=== PATIENT | female | born 2000 | race Caucasian/White ===

== ENCOUNTER 2018-04-30 16:13 | Inpatient (IN) | payer OTHER ==
--- NOTE | 2018-04-30 16:54 | EDPHY ---
H & P Stated Complaint: appendectomy 4 days ago, since having ongoing bilat lower abd pain/villarreal Time Seen by Provider: 04/30/18 16:53 - Medical/Surgical History Hx Asthma: Yes Hx Chronic Respiratory Disease: No Hx Diabetes: No Hx Cardiac Disease: No Hx Renal Disease: No Hx Cirrhosis: No Hx Alcoholism: No Hx HIV/AIDS: No Hx Splenectomy or Spleen Trauma: No Other PMH: asthma, appendectomy, deviated septum surg - Social History Smoking Status: Never smoked Constitutional: Initial Vital Signs Temperature (C) 36.6 C 04/30/18 16:16 Heart Rate 72 04/30/18 16:16 Respiratory Rate 16 04/30/18 16:16 Blood Pressure 131/84 H 04/30/18 16:16 O2 Sat (%) 88 L 04/30/18 16:16 O2 Delivery Mode Nasal Cannula O2 (L/minute) 2 Allergies/Adverse Reactions: ondansetron [From Zofran] Allergy (Verified 04/30/18 16:21) Home Medications: Medication Instructions Recorded Albuterol 04/30/18 Ibuprofen 04/30/18 Percocet 5-325 mg Tablet 04/30/18 Phenergan 50mg tab 04/30/18 Medical Decision Making - Diagnostics Imaging Results: Imaging Impressions Abdomen CT 04/30/18 17:06 Impression: 1. Irregular peripherally enhancing collection in the appendectomy bed, suspicious for phlegmon/abscess, with a deep posterior pelvic fluid collection also suspicious for abscess/phlegmon. 2. Moderate bilateral pleural effusions, with bibasilar consolidation and scattered left upper lobe opacities, most likely representing atelectasis although pneumonia could have a similar appearance. 3. No visible pulmonary embolus. 4. Additional findings, as above. Findings discussed with Jamie Varma M.D., on April 30, 2018 at 1907. E:amm Chest/Thorax CTA 04/30/18 17:30 Impression: 1. Irregular peripherally enhancing collection in the appendectomy bed, suspicious for phlegmon/abscess, with a deep posterior pelvic fluid collection also suspicious for abscess/phlegmon. 2. Moderate bilateral pleural effusions, with bibasilar consolidation and scattered left upper lobe opacities, most likely representing atelectasis although pneumonia could have a similar appearance. 3. No visible pulmonary embolus. 4. Additional findings, as above. Findings discussed with Jamie Varma M.D., on April 30, 2018 at 1907. E:amm Imaging: Discussed imaging studies w/ geospatial engineer Radiologist, I viewed and interpreted images myself ED Course/Re-evaluation: CHIEF COMPLAINT: Abdominal pain, malaise following appendectomy HISTORY OF PRESENT ILLNESS: The patient is a 18 y/o female arriving with her family complaining of abdominal pain and malaise following an appendectomy on , 4 days ago. Per mother, she had an uncomplicated appendicitis without perforation or rupture. There was some confusion about whether she should be on an antibiotic or not and she ultimately only took one antibiotic dose. She has been feeling "very poorly" since the surgery. She complains of pain in her lower abdomen on both sides that is aggravated significantly with movement and breathing and has prohibited her from walking and sitting up. She also complains of a headache, myalgias, and nausea. She had her first bowel movement since the surgery today. She generally feels "very sick," though no measured fever. She has been on Percocet and Advil nonstop since surgery. REVIEW OF SYSTEMS: A comprehensive 10 system review of systems is otherwise negative aside from elements mentioned in the history of present illness and medical decision making. PHYSICAL EXAM: HR, BP, O2 Sat 88% on room air, RR. Temp noted General Appearance: Alert, well hydrated, appropriate, and non-toxic appearing. Head: Atraumatic without scalp tenderness or obvious injury Eyes: Pupils equal, round, reactive to light and accommodation, EOMI, no trauma , no injection. Nose: Atraumatic, no rhinorrhea, clear. Throat: Mucus membranes moist. Neck: Supple, nontender, no lymphadenopathy. Respiratory: No retractions, no distress, no wheezes, and no accessory muscle use. Lungs are clear to auscultation bilaterally. Cardiovascular: Regular rate and rhythm, no murmurs, rubs, or gallops. Good capillary refill all extremities. Gastrointestinal: Abdomen is soft, lower abdominal tenderness, non-distended, no masses, no rebound, no guarding, no peritoneal signs. Wound clean, dry, and intact. Musculoskeletal: Normal active ROM of all extremities, atraumatic. Neurological: Alert, appropriate, and interactive. The patient has non-focal cranial nerves, motor, sensory, and cerebellar exam. Skin: No rashes, good turgor, no nodules on palpation. Past medical history: Asthma Past surgical history: Laparoscopic appendectomy 04/26/18 in [place], deviated septum surgery. Family history: Noncontributory Social history: Lives in [place]. Family at bedside. DIAGNOSTICS/PROCEDURES/CRITICAL CARE TIME: Abdominal CT: pelvic abscesses near suture line of appendectomy, atelectasis. DIFFERENTIAL DIAGNOSIS: The differential diagnosis for the patient's abdominal pain included but was not limited to post-surgical complication, ovarian cyst, pelvic inflammatory disease, ovarian torsion, urinary tract infection, ectopic , cholecystitis, and appendicitis. MEDICAL DECISION MAKING: This is a normally healthy 18 y/o female 4 days out from an appendectomy who presents with abdominal pain and malaise since the surgery. She has lower abdominal tenderness on exam that is significantly worse with movement and palpation. Concern for post-surgical complication. Plan for IV, labs, abdominal CT, and symptom management. 1L IV NS, 12.5mg IV Phenergan, 30mg IV Toradol, and 0.5mg IV Dilaudid ordered. CT shows two pelvic abscesses. WBC is elevated. Reassessed patient and discussed findings. Consulted with Dr. Lee, surgeon. He will evaluate patient in the ED. Dr. Lee will admit patient. - Data Points Laboratory Results: Laboratory Results 04/30/18 17:10 04/30/18 17:10 04/30/18 04/30/18 04/30/18 17:15 17:10 17:10 WBC RBC Hgb POC Hgb 11.6 gm/dL L gm/dL (12.6-16.3) Hct POC Hct 34 % L % (38-47) MCV MCH MCHC RDW Plt Count MPV Neut % (Auto) Lymph % (Auto) [place] % (Auto) Eos % (Auto) Baso % (Auto) Nucleat RBC Rel Count Absolute Neuts (auto) Absolute Lymphs (auto) Absolute Monos (auto) Absolute Eos (auto) Absolute Basos (auto) Absolute Nucleated RBC Immature Gran % Immature Gran # POC Sodium 140 mEq/L mEq/L (135-145) Sodium 137 mEq/L mEq/L (135-145) POC Potassium 3.6 mEq/L mEq/L (3.3-5.0) Potassium 3.8 mEq/L mEq/L (3.3-5.0) POC Chloride 99 mEq/L mEq/L (97-110) Chloride 101 mEq/L mEq/L (97-110) Carbon Dioxide 27 mEq/l mEq/l (22-31) Anion Gap 9 mEq/L mEq/L (6-14) POC BUN 5 mg/dL L mg/dL (7-23) BUN 8 mg/dL mg/dL (7-23) Creatinine 0.6 mg/dL mg/dL (0.6-1.0) POC Creatinine 0.6 mg/dL mg/dL (0.6-1.0) Estimated GFR > 60 Glucose 86 mg/dL mg/dL (70-100) POC Glucose 86 mg/dL mg/dL (70-100) Calcium 8.8 mg/dL mg/dL (8.5-10.4) Beta HCG, Qual NEGATIVE 04/30/18 17:10 WBC 11.74 10^3/uL H 10^3/uL (3.80-9.50) RBC 3.63 10^6/uL L 10^6/uL (4.18-5.33) Hgb 11.5 g/dL L g/dL (12.6-16.3) POC Hgb Hct 33.6 % L % (38.0-47.0) POC Hct MCV 92.6 fL fL (81.5-99.8) MCH 31.7 pg pg (27.9-34.1) MCHC 34.2 g/dL g/dL (32.4-36.7) RDW 12.6 % % (11.5-15.2) Plt Count 263 10^3/uL 10^3/uL (150-400) MPV 9.1 fL fL (8.7-11.7) Neut % (Auto) 76.5 % H % (39.3-74.2) Lymph % (Auto) 12.0 % L % (15.0-45.0) [place] % (Auto) 7.4 % % (4.5-13.0) Eos % (Auto) 1.8 % % (0.6-7.6) Baso % (Auto) 0.5 % % (0.3-1.7) Nucleat RBC Rel Count 0.3 % H % (0.0-0.2) Absolute Neuts (auto) 8.98 10^3/uL H 10^3/uL (1.70-6.50) Absolute Lymphs (auto) 1.41 10^3/uL 10^3/uL (1.00-3.00) Absolute Monos (auto) 0.87 10^3/uL H 10^3/uL (0.30-0.80) Absolute Eos (auto) 0.21 10^3/uL 10^3/uL (0.03-0.40) Absolute Basos (auto) 0.06 10^3/uL 10^3/uL (0.02-0.10) Absolute Nucleated RBC 0.04 10^3/uL H 10^3/uL (0-0.01) Immature Gran % 1.8 % H % (0.0-1.1) Immature Gran # 0.21 10^3/uL H 10^3/uL (0.00-0.10) POC Sodium Sodium POC Potassium Potassium POC Chloride Chloride Carbon Dioxide Anion Gap POC BUN BUN Creatinine POC Creatinine Estimated GFR Glucose POC Glucose Calcium Beta HCG, Qual Medications Given: Hydromorphone HCl (Dilaudid) 0.5 mg IVP Q4HRS ONE Stop: 04/30/18 19:52 Last Admin: 04/30/18 19:52 Dose: 0.5 mg Meropenem 1 gm/ Sodium (Chloride) 120 mls @ 120 mls/hr IV EDNOW ONE PRN Reason: Protocol Stop: 04/30/18 20:09 Last Admin: 04/30/18 19:44 Dose: 120 mls Discontinued Medications Hydromorphone HCl (Dilaudid) 0.5 mg IVP EDNOW ONE Stop: 04/30/18 17:07 Last Admin: 04/30/18 17:21 Dose: 0.5 mg Sodium Chloride (Ns) 1,000 mls @ 0 mls/hr IV EDNOW ONE; Wide Open PRN Reason: Protocol Stop: 04/30/18 17:07 Last Admin: 04/30/18 17:16 Dose: 1,000 mls Ketorolac Tromethamine (Toradol) 30 mg IVP EDNOW ONE Stop: 04/30/18 17:07 Last Admin: 04/30/18 17:17 Dose: 30 mg Promethazine HCl (Phenergan) 12.5 mg IVP EDNOW ONE Stop: 04/30/18 17:08 Last Admin: 04/30/18 17:20 Dose: 12.5 mg Point of Care Test Results: Chemistry 04/30/18 17:15 POC Sodium 140 mEq/L mEq/L (135-145) POC Potassium 3.6 mEq/L mEq/L (3.3-5.0) POC Chloride 99 mEq/L mEq/L (97-110) POC BUN 5 mg/dL L mg/dL (7-23) POC Creatinine 0.6 mg/dL mg/dL (0.6-1.0) POC Glucose 86 mg/dL mg/dL (70-100) ISTAT H&H 04/30/18 17:15 POC Hgb 11.6 gm/dL L gm/dL (12.6-16.3) POC Hct 34 % L % (38-47) Departure - Departure Disposition: [facility] Inpatient Acute Clinical Impression: Intra-abdominal abscess post-procedure Condition: Fair Report Scribed for: Jamie Varma Report Scribed by: Toña Coburn Date of Report: 04/30/18 Time of Report: 17:37
[2018-04-30] MEDS ORDERED: NS 1,000 ML IV ONE (17:06)
[2018-04-30] MEDS ORDERED: HYDROmorphONE/DILAUDID 2 MG/ML INJ IVP ONE (17:06)
[2018-04-30] MEDS ORDERED: KETOROLAC 30 MG/1 ML SDV IVP ONE (17:06)
[2018-04-30] MEDS ORDERED: PROMETHAZINE HCL 25 MG/ML INJ IVP ONE (17:07)
[2018-04-30 17:21] LABS: PLATELET COUNT 263 10^3/uL (150-400)
[2018-04-30] MEDS ORDERED: IOPAMIDOL (ISOVUE 370) 100 ML BTL IV ONE (18:01)
[2018-04-30] MEDS ORDERED: MEROPENEM 1 GM in NS 100 ML IV ONE (19:10)
[2018-04-30] MEDS ORDERED: HYDROmorphONE/DILAUDID 1 MG/ML INJ ONE (19:48)
[2018-04-30] MEDS ORDERED: HYDROmorphONE/DILAUDID 1 MG/ML INJ IVP ONE ×2 (19:51→20:30)
[2018-04-30] MEDS ORDERED: HYDROCODONE/APAP 5/325 TAB PO PRN (20:58)
[2018-04-30] MEDS: LR 1,000 ML IV SCH (21:24)
--- NOTE | 2018-04-30 22:12 | GHP ---
CHIEF COMPLAINT: Fevers, chills, malaise, abdominal pain. PRESENT ILLNESS: A 18-year-old female who had fever, sweats and lower abdominal pain early in the we ek in [place], was seen at the [facility] in [place] and underwent a laparoscopic appendectomy for what CT scan described as a 15 mm tubular structure with a calcificati on within. She did not feel much better post procedure, but was sent home the following night. Unclear what the pathology showed, although we have sent for records. The patient had a fairly miserable [address] Her mother flew her back to [place] and she presents to [facility] [place] [facility]. She states she is trying to cough stuff up, but has been unproductive, and still has lowe r abdominal pain. She has never had a previous similar illness. A CT scan obtained here at the hospital is reviewed by myself and Dr. Victor and we feel she has bila teral basilar pneumonia with pleural effusions. There is an ill-defined, small 1.6 cm fluid collecti on near the appendiceal staple line, which is nonspecific for abscess versus post procedure inflammat ion. There is also a fluid collection in the pelvis which is unimpressive, and again indeterminate f or abscess versus benign postop fluid. White blood count was 11.74. PAST MEDICAL HISTORY/ALLERGIES: None. CURRENT MEDICATIONS: None. SOCIAL HISTORY: Nonsmoker. Rare alcohol use. PAST SURGICAL HISTORY: Septoplasty, now laparoscopic appendectomy. REVIEW OF SYSTEMS: Denies asthma, heart trouble, lung trouble, diabetes, epilepsy, rheumatic fever. She is a student in business. PHYSICAL EXAM: HEENT: Slight erythema in the pharynx. No exudate. No scleral icteric. NECK: Sup ple without adenopathy. LUNGS: Decreased breath sounds, both bases, with some E to A changes. ABDO MEN: Soft, but there is some tenderness, both lower quadrants. No rebound. ASSESSMENT: A patient with a history of abdominal pain and a 15 mm appendix removed. Pathology is u nclear as to whether this was acutely inflamed or not, but she now presents with bilateral basilar pn eumonia and some abdominal issues. It is unclear whether her abdominal issues are from the small flu id collection seen versus pain from bilateral basilar pneumonia. PLAN: Admit, IV Levaquin, Medicine consultation. Obtain the pathology and operative reports from [facility]. If her abdominal complaints persist, reimaging with oral contrast to better def ine them, and it is possible that she would need operative intervention to drain these. Neither are amenable to percutaneous drainage. At the present time, I am not convinced that these collections ar e the cause of her malaise and feel it is more likely the bilateral basilar pneumonia. /[id number]/MODL
[2018-04-30] MEDS ORDERED: PROMETHAZINE HCL 25 MG/ML INJ IVP PRN (22:32)
[2018-05-01] MEDS: PROMETHAZINE HCL 25 MG/ML INJ IVP PRN ×3 (03:30→18:45)
[2018-05-01] MEDS: HYDROmorphONE/DILAUDID 2 MG/ML INJ IVP PRN ×3 (06:24→18:45)
--- NOTE | 2018-05-01 08:08 | PDMN ---
Medical Necessity Medical necessity: MCG M282 cPNA A-2 days: pt admits with abd pain, recent Lap appy in [place] one week ago., ongoing abd pain now with bilateral basilar pna with pleural effusions seen on CT., O2 sats 84-88% RA 91-94% 2L., irregular peripherally enhancing collection in the appendectomy bed suspicious for phlegmon/abscess - anticipate > 2 MN ongoing med nec care, further eval and monitoring of abd pain, pna and plueral effusions.
[2018-05-01] MEDS: LR 1,000 ML IV SCH (09:56)
--- NOTE | 2018-05-01 10:13 | SOAPPROG ---
[facility]ALIT Progress Note Assessment/Plan: Assessment/Plan: 18-year-old woman 6 days status post laparoscopic appendectomy for acute appendicitis treated in [place] by Dr. Vasques. Initially admitted yesterday by Dr. Miranda CT scan of the chest abdomen pelvis shows what appears to be bilateral lower lobe pneumonias, bilateral pleural effusions, small 1 and 3 cm fluid collections periappendiceal and in the pelvis perirectally. She also has anasarca. Records from hospital and operation demonstrated acute appendicitis without rupture operative note states uncomplicated appendicitis with irrigation of the abdomen for serous fluid in the pelvis No mention of aspiration White blood cell count 12.5 up from 11 yesterday Vomiting overnight Malaise and abdominal pain somewhat better since admission Vital signs stable although she does have 93% saturation on 2 L face mask. Regular rate and rhythm Clear to auscultation Abdomen soft nontender nondistended incisions well approximated Dermabond in place Extremities without edema Impression: Possible bilateral aspiration pneumonia lashon operatively also may have had a secondary cause of her malaise such as the flu. Abdomen appears benign. I do not believe she needs to have laparoscopic or open washout or culture of the fluid. No need for thoracentesis either at this time. Continued leukocytosis with left shift Plan: Continue Levaquin and Flagyl consider change to second-generation cephalosporin. Will get Medicine input. Long discussion held with patient and her mother regarding options for care. Repeat white blood cell count the morning. Start clear liquids for now. 05/01/18 10:09 05/01/18 10:13 Objective: Vital Signs Temp Pulse Resp BP Pulse Ox 36.6 C 77 16 121/74 H 94 05/01/18 08:00 05/01/18 08:00 05/01/18 08:00 05/01/18 08:00 05/01/18 08:00 Laboratory Results 05/01/18 05:49 04/30/18 05/01/18 05/02/18 05:59 05:59 05:59 Intake Total 835 Output Total 900 Balance -65 ICD10 Worksheet Patient Problems: Problems Problem Status Onset Intra-abdominal abscess post-procedure Acute
--- NOTE | 2018-05-01 13:50 | PDHOSCONS ---
History and Physical - Chief Complaint SOB - History of Present Illness We have been asked to provide consultation regarding this 18 yo Female, college student, who had lap appendectomy due to acute appendicitis about 6 days ago in [place]. She is a college student there. Her post op course was complicated by malaise and SOB. She was discharged on Levaquin but its unclear if she took this or how many dose she took. She denies fever but has had diaphoresis. She has had an intermittent cough. She has had abd discomfort. Her mother flew her back home to [place] and they presented on 04/30 to the ER. Here she was found to have small 1 and 3 cm fluid collections in the periappendiceal and pelvis perirectally as well as bilateral basilar pneumonia with pleural effusions. It was felt that her acute symptoms were from respiratory in etiology and not from an abdominal etiology. She was stared on Meropenem in the ER and then changed to Levaquin and Flagyl. There is no e/o P.E. on imaging. She has remained afebrile. She is using 2L of O2. She is still having malaise. Some intermittent nausea but no vomiting since yesterday afternoon. She is tolerating a CLD. She has not had tachycardia or hypotension. There was reported Anasarca and the pts family report that she had significant abd distention and pedal edema on presentation yesterday. However this is not appreciated today. She denies CP, current n/v, diarrhea, caf pain, palpitations, or other PMHx: none, denies asthma or lung disease. denies hx of hypercoagulable state PSHx: Septoplasty, recent Lap Appy SocHx: no tobacco use, student FmHx: non contributory Imaging: reviewed. History Information - Allergies/Home Medication List Allergies/Adverse Reactions: ondansetron [From Zofran] Allergy (Verified 04/30/18 20:10) Headache, Migraine Home Medications: Ibuprofen [Motrin (*)] 600 mg PO Q6H PRN 04/30/18 [Last Taken 04/30/18 10:00] Multivitamins [Multivitamin (*)] 1 each PO DAILY 04/30/18 [Last Taken 04/23/18] Promethazine HCl [Phenergan 25mg (*)] 25 mg PO Q6H PRN 04/30/18 [Last Taken 07/06 10:00] levOFLOXACIN [levAQUIN (*)] 500 mg PO DAILY 04/30/18 [Last Taken 04/28/18] oxyCODONE/APAP 5/325 [Percocet 5/325 (*)] 1 tab PO Q6H PRN 04/30/18 [Last Taken 04/30/18 10:00] I have personally reviewed and updated: family history, medical history, social history - Social History Smoking Status: Never smoked Review of Systems Review of Systems: ROS: 10pt was reviewed & negative except for what was stated in HPI & below Physical Exam Physical Exam: Temp Pulse Resp BP Pulse Ox 36.9 C 74 16 123/79 H 95 05/01/18 11:42 05/01/18 11:42 05/01/18 11:42 05/01/18 11:42 05/01/18 11:42 O2 (L/minute) 2 Constitutional: no apparent distress Eyes: PERRL Ears, Nose, Mouth, Throat: moist mucous membranes Cardiovascular: regular rate and rhythym, no murmur, rub, or gallop Respiratory: no respiratory distress, reduced air movement Gastrointestinal: soft, non-tender abdomen Skin: warm Neurologic: AAOx3 Psychiatric: interacting appropriately, not anxious, not encephalopathic Lymph, Heme, Immunologic: No petechiae Lab Data & Imaging Review 05/02/18 05:39 05/02/18 05:39 WBC 12.52 10^3/uL (3.80-9.50) H 05/01/18 05:49 RBC 3.62 10^6/uL (4.18-5.33) L 05/01/18 05:49 Hgb 11.7 g/dL (12.6-16.3) L 05/01/18 05:49 POC Hgb 11.6 gm/dL (12.6-16.3) L 04/30/18 17:15 Hct 33.5 % (38.0-47.0) L 05/01/18 05:49 POC Hct 34 % (38-47) L 04/30/18 17:15 MCV 92.5 fL (81.5-99.8) 05/01/18 05:49 MCH 32.3 pg (27.9-34.1) 05/01/18 05:49 MCHC 34.9 g/dL (32.4-36.7) 05/01/18 05:49 RDW 12.5 % (11.5-15.2) 05/01/18 05:49 Plt Count 291 10^3/uL (150-400) 05/01/18 05:49 MPV 9.1 fL (8.7-11.7) 04/30/18 17:10 Neut % (Auto) 76.5 % (39.3-74.2) H 04/30/18 17:10 Lymph % (Auto) 12.0 % (15.0-45.0) L 04/30/18 17:10 [place] % (Auto) 7.4 % (4.5-13.0) 04/30/18 17:10 Eos % (Auto) 1.8 % (0.6-7.6) 04/30/18 17:10 Baso % (Auto) 0.5 % (0.3-1.7) 04/30/18 17:10 Nucleat RBC Rel Count 0.3 % (0.0-0.2) H 04/30/18 17:10 Absolute Neuts (auto) 8.98 10^3/uL (1.70-6.50) H 04/30/18 17:10 Absolute Lymphs (auto) 1.41 10^3/uL (1.00-3.00) 04/30/18 17:10 Absolute Monos (auto) 0.87 10^3/uL (0.30-0.80) H 04/30/18 17:10 Absolute Eos (auto) 0.21 10^3/uL (0.03-0.40) 04/30/18 17:10 Absolute Basos (auto) 0.06 10^3/uL (0.02-0.10) 04/30/18 17:10 Absolute Nucleated RBC 0.04 10^3/uL (0-0.01) H 04/30/18 17:10 Immature Gran % 1.8 % (0.0-1.1) H 04/30/18 17:10 Immature Gran # 0.21 10^3/uL (0.00-0.10) H 04/30/18 17:10 POC Sodium 140 mEq/L (135-145) 04/30/18 17:15 Sodium 137 mEq/L (135-145) 04/30/18 17:10 POC Potassium 3.6 mEq/L (3.3-5.0) 04/30/18 17:15 Potassium 3.8 mEq/L (3.3-5.0) 04/30/18 17:10 POC Chloride 99 mEq/L (97-110) 04/30/18 17:15 Chloride 101 mEq/L (97-110) 04/30/18 17:10 Carbon Dioxide 27 mEq/l (22-31) 04/30/18 17:10 Anion Gap 9 mEq/L (6-14) 04/30/18 17:10 POC BUN 5 mg/dL (7-23) L 04/30/18 17:15 BUN 8 mg/dL (7-23) 04/30/18 17:10 Creatinine 0.6 mg/dL (0.6-1.0) 04/30/18 17:10 POC Creatinine 0.6 mg/dL (0.6-1.0) 04/30/18 17:15 Estimated GFR > 60 04/30/18 17:10 Glucose 86 mg/dL (70-100) 04/30/18 17:10 POC Glucose 86 mg/dL (70-100) 04/30/18 17:15 Calcium 8.8 mg/dL (8.5-10.4) 04/30/18 17:10 Beta HCG, Qual NEGATIVE 04/30/18 17:10 Assessment & Plan Assessment: #Bilateral basilar pneumonia with pleural effusion #Hypoxemia related to above -this is mild and her overall lung exam is reassuring #Recent Lap Shayla with CT c/w small 1 cm and 3cm fluid collection periappendiceal and pelvis perirectally -?concern for intra-abdominal abscess post procedure -Surgery following, no surgical intervention at this time #reported Anasarca, appears improved, has not received diuretics #nausea #malaise and diaphoresis Plan: -Given that it is unclear is she was on Levaquin or for how many doses, I will change the abx to Rocephin with Flagyl. This should cover aspiration pneumonia as well as abd etiology -If she decompensates, would consider further surgical evaluation and mgmt of possible abscess -Will check PC -Check blood cultures, although has been on abx -She is on a CLD and is has been able to drink sufficient amount of fluids without emesis today -Given reported Anasarca and currently drinking well and hemodynamically stable , will hold IVF for now. Low threshold to restart -symptom mgmt -SCD's, will order
--- NOTE | 2018-05-01 15:40 | ASMTCMCOM ---
CM Note CM Note Notes: Pt is a 18 y/o female admitted for shortness of breath. Pt had an acute appendicitis about 6 days ago in [place]. Pt is a college student in [place]. Pt will most likely d/c independent when medically stable. No therapies ordered at this time. CM available for changes. Plan: Independent Date Signed: 05/01/2018 03:40 PM Electronically Signed By:SWAPNA Galvez
[2018-05-02] MEDS: HYDROmorphONE/DILAUDID 2 MG/ML INJ IVP PRN (03:49)
[2018-05-02 06:13] LABS: PLATELET COUNT 335 10^3/uL (150-400)
--- NOTE | 2018-05-02 08:16 | SOAPPROG ---
[facility]AL[facility] Progress Note Assessment/Plan: Assessment/Plan: 18-year-old woman 6 days status post laparoscopic appendectomy for acute appendicitis treated in [place] by Dr. Vasques. Initially admitted yesterday by Dr. Miranda CT scan of the chest abdomen pelvis shows what appears to be bilateral lower lobe pneumonias, bilateral pleural effusions, small 1 and 3 cm fluid collections periappendiceal and in the pelvis perirectally. She also has anasarca. Records from hospital and operation demonstrated acute appendicitis without rupture operative note states uncomplicated appendicitis with irrigation of the abdomen for serous fluid in the pelvis No mention of aspiration White blood cell count down to 10.9 No vomiting overnight Malaise and abdominal pain somewhat better since admission Vital signs stable 97-100% on RA Regular rate and rhythm Clear to auscultation Abdomen soft no peritoneal signs. tender llq (incisional/expected) nondistended incisions well approximated Dermabond in place Extremities without edema Impression: Possible bilateral aspiration pneumonia lashon operatively also may have had a secondary cause of her malaise such as the flu. Abdomen appears benign. I do not believe she needs to have laparoscopic or open washout or culture of the fluid. No need for thoracentesis either at this time. Continued leukocytosis with left shift down to 10.9 from 12.5 Plan: Continue Rocephin and Flagyl. Appreciate Medicine input. Long discussion held with patient and her mother regarding options for care. Repeat white blood cell count the morning. Adv diet to regular 05/01/18 10:09 05/01/18 10:13 05/02/18 08:13 Objective: Vital Signs Temp Pulse Resp BP Pulse Ox 36.7 C 68 16 116/74 94 05/02/18 04:00 05/02/18 04:00 05/02/18 04:00 05/02/18 04:00 05/02/18 04:00 Laboratory Results 05/02/18 05:39 05/02/18 05:39 05/01/18 05/02/18 05/03/18 05:59 05:59 05:59 Intake Total 835 Output Total 900 700 Balance -65 -700 ICD10 Worksheet Patient Problems: Problems Problem Status Onset Intra-abdominal abscess post-procedure Acute
--- NOTE | 2018-05-02 13:08 | HOSPPROG ---
Hospitalist Progress Note Assessment/Plan: #Bilateral basilar pneumonia with pleural effusion #Hypoxemia related to above -this is mild and her overall lung exam is reassuring #Recent Lap Shayla with CT c/w small 1 cm and 3cm fluid collection periappendiceal and pelvis perirectally -imaging with concern for intra-abdominal abscess post procedure. -Surgery following, no surgical intervention at this time #reported Anasarca, appears improved, has not received diuretics #nausea #malaise and diaphoresis Plan: Doing better now on a regular diet cont with Rocephin and Flagyl SCDs Subjective: doing better. Now on RA. no cp or sob. Objective: Vital Signs Temp Pulse Resp BP Pulse Ox 36.6 C 71 12 105/69 96 05/02/18 12:00 05/02/18 12:00 05/02/18 12:00 05/02/18 12:00 05/02/18 12:00 Laboratory Results 05/02/18 05:39 05/02/18 05:39 05/01/18 05/02/18 05/03/18 05:59 05:59 05:59 Intake Total 835 Output Total 900 700 Balance -65 -700 - Physical Exam Constitutional: no apparent distress Eyes: PERRL, EOMI Ears, Nose, Mouth, Throat: moist mucous membranes, hearing normal Cardiovascular: regular rate and rhythym Respiratory: reduced air movement Gastrointestinal: normoactive bowel sounds, soft, non-tender abdomen Skin: warm Musculoskeletal: generalized weakness Neurologic: AAOx3 Psychiatric: interacting appropriately, not anxious, not encephalopathic Lymph, Heme, Immunologic: No petechiae ICD10 Worksheet Patient Problems: Problems Problem Status Onset Intra-abdominal abscess post-procedure Acute
--- NOTE | 2018-05-03 08:30 | SOAPPROG ---
[facility] Progress Note Assessment/Plan: Assessment/Plan: 18-year-old woman 6 days status post laparoscopic appendectomy for acute appendicitis treated in [place] by Dr. Vasques. Initially admitted yesterday by Dr. Miranda CT scan of the chest abdomen pelvis shows what appears to be bilateral lower lobe pneumonias, bilateral pleural effusions, small 1 and 3 cm fluid collections periappendiceal and in the pelvis perirectally. She also had anasarca. Anasarca has resolved. Tolerating diet Records from hospital and operation demonstrated acute appendicitis without rupture operative note states uncomplicated appendicitis with irrigation of the abdomen for serous fluid in the pelvis No mention of aspiration White blood cell count down to 10.9 No vomiting overnight Malaise and abdominal pain somewhat better since admission Vital signs stable 97-100% on RA Regular rate and rhythm Clear to auscultation Abdomen soft no peritoneal signs. tender llq (incisional/expected) nondistended incisions well approximated Dermabond in place Extremities without edema Impression: Possible bilateral aspiration pneumonia lashon operatively also may have had a secondary cause of her malaise such as the flu. Abdomen appears benign. I do not believe she needs to have laparoscopic or open washout or culture of the fluid. No need for thoracentesis either at this time. Plan: Discharge today after Rocephin. Discharge discharged on Augmentin p.o. Follow up in my office in approximately 3-5 days. Long discussion held with patient and her mother regarding options for care. 05/01/18 10:13 05/02/18 08:13 05/03/18 08:29 Objective: Vital Signs Temp Pulse Resp BP Pulse Ox 36.6 C 75 14 107/60 94 05/03/18 03:32 05/03/18 03:32 05/03/18 03:32 05/03/18 03:32 05/03/18 03:32 Laboratory Results 05/02/18 05:39 05/02/18 05:39 05/02/18 05/03/18 05/04/18 05:59 05:59 05:59 Intake Total 455 Output Total 700 Balance -700 455 ICD10 Worksheet Patient Problems: Problems Problem Status Onset Intra-abdominal abscess post-procedure Acute
[2018-05-03 09:10] VITALS: BP 112/72
--- NOTE | 2018-05-03 16:48 | PDDCSUM ---
Discharge Summary Discharge Summary: Date of admission: 04/30/2018 Date of discharge: 05/03/2018 Principal diagnosis: Abdominal pain post appendectomy. Bilateral aspiration pneumonia Consultations: Medicine for aspiration pneumonia. Medications on discharge: Augmentin 875 mg twice daily x5 days. [place] 5/325 1- 2 p.o. Q.4-6 hours p.r.n. Pain for 5 days. Follow-up appointment: Patient to call in 3-5 days for follow-up with myself or with Dr. Lee History of illness: This is a 18-year-old woman who was admitted to the hospital 5 days after laparoscopic appendectomy at [facility] in [place]. The patient had continued malaise leukocytosis and was unable to keep food down. CT scan of the abdomen pelvis was performed demonstrating 2 small intra-abdominal fluid collections and what appeared to be bilateral bibasilar pneumonias with pleural effusions. The patient was mildly hypoxic on arrival. She was made NPO. She was placed on Levaquin and Flagyl which was later changed to ceftriaxone and Flagyl to cover aspiration pneumonia and intra-abdominal issues. Her saturations improved and she was able to be discharged on room air saturating 94 -97% as well as being able to tolerated diet after 24 hr of bowel rest. Discussion was held with the patient & family. All questions and concerns were addressed prior to discharge. They were comfortable with her discharge on medications tolerating a diet. She was told to return with any problems related to her surgery or hospitalization. These include but are not limited to returns of symptoms, inability to eat, hypoxia or dyspnea, fevers or chills.
== END 2018-05-03 11:29 | disposition home or self-care (01) | DRG 179 ==
LOC: OBSVTOIN 19:34 → F3E 20:51
PROVIDERS: ADMIT Surgery; ATTEND Surgery
DX: J69.0 Pneumonitis due to inhalation of food and vomit (principal); G89.18 Other acute postprocedural pain
CPT/HCPCS: 82435-PO; 82565-PO; 82947-PO; 84132-PO; 84295-PO; 84520-PO; 85014-PO; 96374; J0696; J1170; J1885; J1956; J2185; J2270; J2550; Q9967